=== PATIENT | female | born 1990 | race Caucasian/White ===

== ENCOUNTER 2016-11-28 17:04 | Inpatient (IN) | payer MEDICAID ==
[~2016-11-28] VITALS: Ht 154.9 cm; Wt 76.9 kg
[2016-11-28 17:34] VITALS: Ht 154.9 cm; Wt 76.9 kg
[2016-11-28 17:50] LABS: BASOPHILS % 0.1 % (0.0-2.0); EOSINOPHILS % 0.1 % (0.0-7.0); HEMATOCRIT 31.3 % (37.0-47.0); HEMOGLOBIN 9.7 g/dl (12.0-16.0); LYMPHOCYTES # 1.4 10^3/ul (0.8-2.9); MEAN CORPUSCULAR HEMOGLOBIN 20.4 pg (29.0-33.0); MEAN CORPUSCULAR HGB CONC 30.9 g/dl (32.0-37.0); MEAN PLATELET VOLUME 10.1 fl (7.4-10.4); MONOCYTE # 0.4 10^3/ul (0.3-0.9); NEUTROPHIL # 7.6 10^3/ul (1.6-7.5); NEUTROPHILS % 80.8 % (39.0-77.0); PLATELET COUNT 217 10^3/UL (140-440); RED BLOOD COUNT 4.75 10^6/ul (4.20-5.40); RED CELL DISTRIBUTION WIDTH 17.6 % (11.5-14.5); UNCORRECTED WBC 9.4 10^3/ul (4.8-10.8); WHITE BLOOD COUNT 9.4 10^3/ul (4.8-10.8)
[2016-11-28 17:56] LABS: CONDITION 1; LH ANALYZER COMMENTS 1; SUSPECT 1
[2016-11-28 18:02] LABS: INR 0.93; PROTIME 12.5 Sec (12.2-14.2)
[2016-11-28 18:03] LABS: PARTIAL THROMBOPLASTIN TIME 28.1 Sec (25.0-35.0)
--- NOTE | 2016-11-28 18:30 | RADRPT ---
PROCEDURE: US OB CLINICAL INDICATION: LGA TECHNIQUE: Multiple sonographic images of the pelvis were obtained. The images were reviewed on a PACS workstation. COMPARISON: None FINDINGS: The cervix is not well visualized. There is a single viable intrauterine gestation. Cardiac activity is present with 126 beats per minute. There is a vertex presentation. The placenta is posterior and fundal. There is no evidence for an abruption or placenta previa. There is a normal amount of amniotic fluid with an EMMIE = 11.6 cm. Measurements were made in order to determine age. The results are as follows (cm): BPD =9.33 HC =33.62 AC =34.56 FL =7.42 Estimated gestational age by ultrasound of approximately 38 weeks, 2 days. The estimated date of delivery by ultrasound is 12/10/2016. Reported gestational age by LMP of approximately 37 weeks, 4 days. The reported date of delivery by LMP is 12/15/2016. EFW = 3453 grams (77th percentile) IMPRESSION: Single viable intrauterine gestation of approximately 38 weeks, 2 days . The estimated date of delivery is 12/10/2016 . Dating by ultrasound is within 5 days of dating by LMP. Normal EMMIE. Estimated weight in the 77th percentile. RPTAT: EE Physician Carlos Date Time Electronically viewed and signed by Physician Carlos on 11/28/2016 18:29 /
[2016-11-28] MEDS ORDERED: LACTATED RINGER'S 1,000 ML IV SCH (20:40)
[2016-11-28] MEDS ORDERED: OXYTOCIN 30 UNITS/LR 500 ML IV SCH (21:00)
[2016-11-28] MEDS ORDERED: CEFAZOLIN 2 GM/50 ML (PMX) 50 ML IV SCH (21:00)
[2016-11-28] MEDS ORDERED: CARBOPROST 250 MCG INJ IM PRN (21:00)
[2016-11-28] MEDS ORDERED: METHYLERGONOVINE 0.2 MG INJ IM PRN (21:00)
[2016-11-28] MEDS ORDERED: OXYTOCIN 30 UNITS/LR 500 ML IV PRN (21:00)
[2016-11-28] MEDS ORDERED: MISOPROSTOL 200 MCG TAB PR PRN (21:00)
[2016-11-28] MEDS ORDERED: LACTATED RINGER'S 1,000 ML IV ONE (21:24)
[2016-11-28] MEDS ORDERED: EPHEDrine SULFATE 50 MG/5 ML SYG IV PRN (21:30)
[2016-11-28] MEDS ORDERED: DIPHENHYDRAMINE 50 MG INJ IV PRN ×2 (21:30)
[2016-11-28] MEDS ORDERED: MEPERIDINE 25 MG INJ IV PRN (21:30)
[2016-11-28] MEDS ORDERED: morphine 2 MG INJ IV PRN ×2 (21:30)
[2016-11-28] MEDS ORDERED: CITRIC ACID/NA CITRATE 30 ML CUP PO ONE (21:30)
[2016-11-28] MEDS ORDERED: hydrALAzine 20 MG INJ IV PRN (21:30)
[2016-11-28] MEDS ORDERED: ONDANSETRON 4 MG INJ IV ONE (21:30)
[2016-11-28] MEDS ORDERED: KETOROLAC 30 MG INJ IV ONE (21:30)
[2016-11-28] MEDS ORDERED: ZOLPIDEM 5 MG TAB PO PRN (21:30)
[2016-11-28] MEDS ORDERED: morphine (1 MG/ML) 10ML SYRINGE IV PRN ×3 (21:30)
[2016-11-28] MEDS ORDERED: NALOXONE (0.4 MG/ML) INJ IV PRN (21:30)
[2016-11-28] MEDS ORDERED: ONDANSETRON 4 MG INJ IV PRN ×2 (21:30)
[2016-11-28] MEDS ORDERED: CITRIC ACID/NA CITRATE 30 ML CUP ONE (21:33)
[2016-11-28] MEDS ORDERED: ONDANSETRON 4 MG INJ ONE (21:37)
[2016-11-28] MEDS ORDERED: morphine SULFATE/PF (10 MG/10 ML) INJ ONE (21:52)
[2016-11-28] MEDS ORDERED: MIDAZOLAM 1 MG/ML 2 ML INJ ONE (21:52)
[2016-11-28] MEDS ORDERED: EPHEDrine SULFATE 50 MG/5 ML SYG ONE (21:52)
[2016-11-28] MEDS ORDERED: OXYTOCIN 10 UNIT INJ ONE (21:52)
[2016-11-28] MEDS ORDERED: PHENYLephrine (100 MCG/ML) 5ML SYG ONE (22:19)
--- NOTE | 2016-11-28 23:00 | HP ---
Date/Time of Note Date/Time of Note DATE: 11/28/16 TIME: 22:59 OB - History Hx of Present Free Text/Dictation @37+wks GA labor Previous c/section : 2 Para: 1 Care: Good Care Ultrasounds: Normal mid trimester US Obstetrical Complications: None Medical Complications: None Past Family/Social History * Past Medical, Surgical, Family and Obstetric Histories reviewed from chart. OB Admission Exam Physical Exam Abdomen: WNL Extremities: Normal Cervical Dilatation: 2cm Effacement: 75% Station: -1 Membranes: Intact Heart Rate: 140's Accelerations: Accelerations Present Decelerations: No Decelerations Varibility: Moderate Contractions on Admission: 6-10 Minutes Apart Last 72 hours Lab Results CBC & BMP 11/28/16 17:15 OB Assessment/Plan Reason for admission: section Plan: Section Other plan: @37+wks GA labor Previous c/section ERIC PATIÑO M.D. Nov 28, 2016 23:00
--- NOTE | 2016-11-28 23:01 | OPR ---
Operative Report Planned Procedure Free Text/Dictation @37+wks GA labor Previous c/section Procedure date Nov 28, 2016 Procedure(s) Repeat c/section Performed by: ERIC PATIÑO M.D. Assisting provider: CHIDI REEVES Anesthesiologist: LASHONDA JACKSON M.D. Pre-procedure diagnosis @37+wks GA labor Previous c/section Anesthesia Type: spinal Procedure Description Under satisfactory [] anesthesia, the patient was prepped and draped and placed in a supine position, tilted to the left. Pfannenstiel incision was made, carried through the subcutaneous tissue. Bleeders brought under control with electrocautery. Fascia incised to the length of the incision. Rectus muscles from the fascia, divided midline. Peritoneum exposed, entered through a transverse incision. Exploration of abdomen revealed gravid uterus. Bladder flap was developed. Transverse incision was made in the lower segment of the uterus. Amniotic sac ruptured. [] amniotic fluid noted. [] Nasal oropharyngeal suction was performed. The baby was handed to the team for immediate attention. The placenta was delivered manually intact. Uterine cavity was cleaned with wet sponge and drainage established. Uterus closed in 2 layers using [] in continuous fashion. Peritoneal cavity irrigated with warm saline. Sponge, needle and instrument count reported to be correct. Abdominal peritoneum closed with [] continuously. Rectus muscle approximated with []. Fascia closed with [], and skin closed with dermoband. Estimated blood loss [600 ]mL. Urine bag contained []mL of urine Post-Procedure Findings: Live Baby [], Apgars [] and [], weight [], position [], [] presentation []cord. Complications: None Pt Condition post procedure: stable Disposition: PACU Physician Certification I, the undersigned physician, hereby certify that I have discussed the procedure described in this consent form with this patient (or the patient's legal accounts receivable representative), including: * The risk and benefits of the procedure; * Any adverse reactions that may reasonably be expected to occur; * Any alternative efficacious methods of treatment which may be medically viable ; * The potential problems that may occur during recuperation; * Potential for blood transfusion and associated risks/benefits; and * Any research or economic interest I may have regarding this treatment. I further certify that the patient/legally responsible person was encouraged to ask question and that all questions were answered. ERIC PATIÑO M.D. Nov 28, 2016 23:01
--- NOTE | 2016-11-28 23:07 | TRIAGE ---
OB Triage Datetime Report Generated by CPN: 11/28/2016 23:06 Datetime: 11/28/2016 21:11 Assessment Type: Admission Assessment Vaginal Bleeding: None Maternal Assessment Level of Consciousness: Fully Conscious DTR's/Clonus: DTRs 2+; No Clonus Headache: Denies Blurred Vision: No Respiratory Effort: Unlabored; Regular Rhythm; Equal Expansion Breath Sounds, Left: Clear and Equal Breath Sounds, Right: Clear and Equal Nausea/Vomiting: Denies RUQ Epigastric Pain: Denies Lower Extremities Edema: Bilateral Lower Extremities Degree: 1+ Upper Extremities Edema: None Facial Edema: None Fall Risk Assessment History of Falling: (0) No Secondary Diagnosis: (0) No Ambulatory Aid: (0) Bedrest/Nurse Assist IV Therapy: (20) Yes Gait: (0) Normal/Bedrest/Immobile Mental Status: (0) Oriented to Own Ability Fall Score: 20 Fall Risk Score Definition: No Risk: No action required Labor Evaluation Frequency: 3-4 Duration (sec)2399: 50-70 Quality: Moderate Pattern: Normal: <= 5 Contractions in 10 Minutes Resting Tone [place]: Relaxed Heart Rate FHR Baseline Rate: 135 Variability: Moderate 6-25 bpm Accelerations: 15X15 Decelerations: None Category: Category I Pain Assessment Pain Scale: 6 Pain Presence: Intermittent Pain Type: Contraction Pain Location: Abdomen; Back Pain Goal: 8 Membrane Status: Intact Datetime: 11/28/2016 20:45 Labor Evaluation Frequency: IRREGULAR Monitor Mode: External Duration (sec)2399: 30-60 Quality: Mild Pattern: Normal: <= 5 Contractions in 10 Minutes Resting Tone [place]: Relaxed Heart Rate FHR Baseline Rate: 125 Monitor Mode: External US FHR Baseline Changes: No Baseline Change Variability: Moderate 6-25 bpm Accelerations: 15X15 Decelerations: None Category: Category I Datetime: 11/28/2016 20:42 Vaginal Exam Dilatation (cms): 0.0 Effacement (%): 0 Station: -3 Exam By: Joellen MEJIA RN Vaginal Bleeding: None Cervix, Consistency: Firm Cervix, Position: Posterior Datetime: 11/28/2016 20:06 Membrane Status: Intact Datetime: 11/28/2016 20:00 Labor Evaluation Frequency: IRREGULAR Monitor Mode: External Duration (sec)2399: 60 Quality: Mild Pattern: Normal: <= 5 Contractions in 10 Minutes Resting Tone [place]: Relaxed Heart Rate FHR Baseline Rate: 125 Monitor Mode: Internal Scalp Electrode FHR Baseline Changes: No Baseline Change Variability: Moderate 6-25 bpm Accelerations: 15X15 Decelerations: None Category: Category I Datetime: 11/28/2016 17:43 Stage of : OB Triage Assessment Type: Triage Maternal Assessment Level of Consciousness: Fully Conscious DTR's/Clonus: DTRs 2+; No Clonus Headache: Denies Blurred Vision: No Respiratory Effort: Unlabored; Regular Rhythm; Equal Expansion Breath Sounds, Left: Clear and Equal Breath Sounds, Right: Clear and Equal Nausea/Vomiting: Denies RUQ Epigastric Pain: Denies Lower Extremities Edema: None Degree: None Upper Extremities Edema: None Degree: None Facial Edema: None Temperature Route: Axillary Fall Risk Assessment History of Falling: (0) No Secondary Diagnosis: (0) No Ambulatory Aid: (0) Bedrest/Nurse Assist IV Therapy: (0) No Gait: (0) Normal/Bedrest/Immobile Mental Status: (0) Oriented to Own Ability Fall Score: 0 Fall Risk Score Definition: No Risk: No action required Labor Evaluation Frequency: 2-5 Monitor Mode: External Duration (sec)2399: 50-70 Quality: Mild Pattern: Normal: <= 5 Contractions in 10 Minutes Resting Tone [place]: Relaxed Heart Rate FHR Baseline Rate: 135 Monitor Mode: External US Variability: Marked >25 bpm Accelerations: 15X15 Decelerations: None Category: Category I Pain Assessment Pain Scale: 1 Pain Presence: Intermittent Pain Type: Cramping; Contraction Pain Location: Abdomen Pain Goal: 3 Pain Relief Measures: Comfort Measures Datetime: 11/28/2016 17:21 Time of Arrival: 11/28/2016 20:55 EGA: 37.4 Arrived By: Wheelchair Datetime: 11/28/2016 17:19 Time of Arrival: 11/28/2016 17:06 Arrived By: Ambulatory Arrived From: Office Chief Complaint: contractions previous section Movement: Present Contractions: Irregular Time Contractions Began: 11/28/2016 06:00 Contractions: 2-5 Rupture of Membranes: Denies Vaginal Bleeding: None Vaginal Discharge: Denies Recent Sexual Intercouse: Denies Abdominal Trauma: Not Applicable Patient Complaints: Contractions Time Provider Notified: 11/28/2016 17:30 Provider Notified: HAROON Initial Plan: efm/ u/s,routine lab
[2016-11-29 01:30] VITALS: BP 119/69; PULSE 77; RESP 18
[2016-11-29] MEDS ORDERED: LANOLIN 7 GM TUBE TOP PRN (01:30)
[2016-11-29] MEDS ORDERED: METHYLERGONOVINE 0.2 MG INJ IM PRN (01:30)
[2016-11-29] MEDS ORDERED: CARBOPROST 250 MCG INJ IM PRN (01:30)
[2016-11-29] MEDS ORDERED: MISOPROSTOL 200 MCG TAB PR PRN (01:30)
[2016-11-29] MEDS ORDERED: OXYTOCIN 30 UNITS/LR 500 ML IV PRN (01:30)
[2016-11-29 05:13] VITALS: BP 112/70; PULSE 78; RESP 18
[2016-11-29] MEDS: IBUPROFEN 600 MG TAB PO SCH ×3 (05:17→21:00)
[2016-11-29] MEDS: LACTATED RINGER'S 1,000 ML IV SCH ×3 (05:38→17:52)
[2016-11-29 08:00] VITALS: BP 130/71; PULSE 80; RESP 18
[2016-11-29] MEDS: SENNA/DOCUSATE NA (8.6MG/50MG) TAB PO SCH ×2 (08:29→21:23)
[2016-11-29 08:45] LABS: HEMATOCRIT 23.9 % (37.0-47.0); HEMOGLOBIN 7.5 g/dl (12.0-16.0); LYMPHOCYTES # 0.8 10^3/ul (0.8-2.9); LYMPHOCYTES % 7.1 % (15.0-51.0); MEAN CORPUSCULAR HEMOGLOBIN 20.8 pg (29.0-33.0); MEAN CORPUSCULAR HGB CONC 31.6 g/dl (32.0-37.0); MEAN CORPUSCULAR VOLUME 65.9 fl (82.0-101.0); MEAN PLATELET VOLUME 10.7 fl (7.4-10.4); MONOCYTE # 0.4 10^3/ul (0.3-0.9); MONOCYTES % 4.1 % (0.0-11.0); NEUTROPHIL # 9.8 10^3/ul (1.6-7.5); NEUTROPHILS % 88.8 % (39.0-77.0); PLATELET COUNT 184 10^3/UL (140-440); RED BLOOD COUNT 3.62 10^6/ul (4.20-5.40); UNCORRECTED WBC 11.1 10^3/ul (4.8-10.8); WHITE BLOOD COUNT 11.1 10^3/ul (4.8-10.8)
[2016-11-29 09:02] LABS: CONDITION 1; LH ANALYZER COMMENTS 1
[2016-11-29 12:30] VITALS: BP 106/57; PULSE 77; RESP 18
[2016-11-29] MEDS: KETOROLAC 30 MG INJ IV PRN ×2 (12:34→17:51)
[2016-11-29] MEDS ORDERED: INFLUENZA VIRUS VACCINE 0.5 ML (DISPENSING) IM* ONE (13:30)
[2016-11-29 16:22] VITALS: BP 115/69; PULSE 73; RESP 18
[2016-11-29 20:21] VITALS: BP 108/69; PULSE 67; RESP 18
[2016-11-29] MEDS: OXYCODONE/ACETAMINOPHEN (5/325) TAB PO PRN (22:08)
[2016-11-30] MEDS ORDERED: IBUPROFEN 600 MG TAB PO SCH
[2016-11-30 04:21] VITALS: BP 108/59; PULSE 84; RESP 18
[2016-11-30] MEDS: IBUPROFEN 600 MG TAB PO SCH ×5 (05:39→23:42)
[2016-11-30] MEDS: LACTATED RINGER'S 1,000 ML IV SCH (06:29)
[2016-11-30 08:00] VITALS: BP 101/74; PULSE 88; RESP 17
[2016-11-30] MEDS ORDERED: INFLUENZA VIRUS VACCINE 0.5 ML (DISPENSING) IM* ONE (09:00)
[2016-11-30] MEDS: OXYCODONE/ACETAMINOPHEN (5/325) TAB PO PRN ×2 (09:25→19:06)
[2016-11-30] MEDS: SENNA/DOCUSATE NA (8.6MG/50MG) TAB PO SCH ×2 (09:25→21:09)
--- NOTE | 2016-11-30 10:09 | QN ---
Documentation Comment Late Enty: POD#1 is stable,afebrile No VB +flatus +Voids No sign of Depression VS stable Gen NAD Abd soft NT ND Incision intact Genitalia No Blood at perinium --->discharge Home tomorrow --->ambulation ERIC PATIÑO M.D. Nov 30, 2016 10:09
[2016-11-30 16:00] VITALS: BP 116/75; PULSE 80; RESP 18
[2016-11-30 19:20] VITALS: BP_SYST 118; BP_SYST 122; BP_DIAS 58; BP_DIAS 73; PULSE 78; PULSE 84; RESP 18
[2016-12-01 04:00] VITALS: BP 131/68; PULSE 70; RESP 18
[2016-12-01] MEDS: IBUPROFEN 600 MG TAB PO SCH ×2 (05:28→11:20)
[2016-12-01 08:38] VITALS: BP 125/69; PULSE 76; RESP 18
[2016-12-01] MEDS ORDERED: DIPHTH/TET/ACEL PERTUSS (ADULT) 0.5 ML VIAL IM* ONE (09:00)
[2016-12-01] MEDS: SENNA/DOCUSATE NA (8.6MG/50MG) TAB PO SCH (09:32)
[2016-12-01] MEDS: OXYCODONE/ACETAMINOPHEN (5/325) TAB PO PRN (13:55)
== END 2016-12-01 16:45 | disposition home or self-care (01) | DRG 766 ==
LOC: OBT 17:04 → L-D 17:05 → OBT 20:08 → L-D 21:06 → PP1 11-29 01:43
PROVIDERS: ADMIT Obstetrics & Gynecology; ATTEND Obstetrics & Gynecology
PROC: 10D00Z1 Extraction of Products of Conception, Low, Open Approach (ICD-10-PCS; principal; 2016-11-28 22:00)
DX: O34.211 Maternal care for low transverse scar from previous cesarean delivery (principal); Z37.0 Single live birth; Z3A.37 37 weeks gestation of pregnancy
CPT/HCPCS: 36415; 76815; 85025; 85610; 85730; 86592; 86850; 86900; 86901; 90686; 90715; 94760; 96360; 96361; 99464; G0463; J0690; J1885; J2250; J2274; J2370; J2405; J2590; J7120

== ENCOUNTER 2016-12-10 18:19 | Emergency (ER) | payer MEDICAID ==
[~2016-12-10] VITALS: Ht 154.9 cm; Wt 70.5 kg
[2016-12-10 18:26] VITALS: Ht 154.9 cm; Wt 70.5 kg
--- NOTE | 2016-12-10 19:36 | ERD ---
ER Documentation Chief Complaint Date/Time DATE: 12/10/16 TIME: 19:15 Chief Complaint Vaginal bleed since 1300. STAPLES x1 hour HPI 21 y/o female who presents in ED for vaginal bleeding started around 1300. Patient stated that she saw clots of blood described as "strong red." Change about 8 pads for the past 24 hours. Also complains of headache an hour prior to arrival but denies headache during history taking. Just had a November [address] [facility]. Denies headache at this time, loss of consciousness, dizziness, blurry vision, changes in vision, photophobia, facial pain, ear pain, throat pain, difficulty swallowing, neck pain, shoulder pain, chest pain, cough, hemoptysis, abdominal pain, back pain, loss of appetite, nausea, vomiting, hematochezia, diarrhea, constipation, , the possibility of being , bladder and bowel incontinences, extremity weakness, extremity tenderness, numbness or tingling sensation, difficulty walking, recent travel, recent exposure to illness, recent antibiotic use in the last 3 months, fever, chills. Allergy: NKA PMH: Denies. Denies. Family medical history: A1 LMP: Medications: Denies. Surgery: x2 Social: Not working at this time. Denies smoking, use of alcohol, use of illegal drugs. ROS All systems reviewed and are negative except as per history of present illness. Medications Home Meds No Active Prescriptions or Reported Meds Allergies Allergies: Coded Allergies: No Known Allergy (Unverified , 07/05/12) PMhx/Soc History of Surgery: Yes (C SECTIONx2) Anesthesia Reaction: No Hx Neurological Disorder: No Hx Respiratory Disorders: No Hx Cardiac Disorders: No Hx Psychiatric Problems: No Hx Miscellaneous Medical Probl: No Hx Alcohol Use: No Hx Substance Use: No Hx Tobacco Use: No Smoking Status: Never smoker Physical Exam Vitals Vital Signs Date Time Temp Pulse Resp B/P Pulse Ox O2 Delivery O2 Flow Rate FiO2 12/10/16 18:26 98.2 83 18 137/79 98 Physical Exam CONSTITUTIONAL: Well-appearing; well-nourished; in no apparent distress. HEAD: Normocephalic; atraumatic. EYES: Conjunctiva clear, sclera non-icteric, EOM intact. PERRL Ears: Hearing intact. EACs clear, TMs non-bulging, non-inflamed, translucent & mobile, ossicles normal appearance, No obstructions, no erythema, no discharges Nose: No obstructions. No polyps. No external lesions. Mucosa non-inflamed. No external lesions, septum and turbinates normal. No rhinorrhea. No discharges. Frontal sinus is non-tender to palpation. Maxillary sinus is non-tender to palpation. MOUTH: Moist mucous membranes, no lesion, no obstructions, no vesicles, no thrush, patent airway Throat: Uvula in midline. Right tonsil is +1 with no erythema, no exudate. Left tonsil is +1 with no erythema, no exudate. Tolerating secretions well. Good gag reflex. Patent airway. Neck: Supple, without lesions, bruits, or adenopathy. No mass. Thyroid non- enlarged and non-tender to palpation. CHEST: Symmetrical chest. Respirations even and not labored. No retractions noted. CARDIOVASCULAR: Normal S1, S2. RRR. No murmurs, gallops. RESPIRATORY: Normal chest excursion with respiration; breath sounds clear and equal bilaterally; no wheezes, rhonchi, or rales. Breathing even and unlabored. Speaking in clear, full, and complete sentences w/ ease. ABDOMEN: Normal bowel sounds normal. Soft, round, non-distended, non-guarding, no tenderness, no rebound, no organomegaly, no masses, no pulsating abdominal mass. No hernia. No peritoneal signs. site is intact. There is no signs of dehiscence. No discharges. No bleeding. : No CVA tenderness. BACK: Symmetrical shoulder. Spine is midline without deformity, tenderness. No evidence of trauma or deformity. PELVIS: Stable pelvis. No evidence of trauma or deformity. MUSCULOSKELETAL: Normal gait and station. No misalignment, asymmetry, crepitation, defects, tenderness, masses, effusions, decreased range of motion, instability, atrophy or abnormal strength or tone in the head, neck, spine, ribs , pelvis or extremities. No calf tenderness. NEUROVASCULAR: Distal pulses are present. Pedal pulse are present, equal, and normal. Capillary refills are < 2 seconds. NEUROLOGIC: Alert and oriented x4. Speaks full and clear sentences. Cranial Nerves II-XII normal. Sensation to pain, touch, and proprioception normal. Grossly unremarkable. No neurologic deficits. Romberg test is negative. PSYCHOLOGICAL: The patients mood and manner are appropriate. No hallucinations , delusions. Not SI. Not HI. Has the capacity to decide for self SKIN: Normal for age and ethnicity; warm; dry; good turgor; no apparent lesions or exudates. No rashes, hives, discoloration. Intact. Result Diagram: 12/10/16194612/10/161946 Results 24 hrs Laboratory Tests Test 12/10/16 19:47 Anion Gap 19 Basophils # 0.010^3/ul Basophils % 0.1% Blood Morphology Comment Blood Urea Nitrogen 21mg/dl Calcium Level 9.0mg/dl Carbon Dioxide Level 26mmol/L Chloride Level 104mmol/L Creatinine 0.76mg/dl Eosinophils # 0.110^3/ul Eosinophils % 1.5% Glucose Level 108mg/dl Hematocrit 26.9% Hemoglobin 8.1g/dl Lymphocytes # 2.010^3/ul Lymphocytes % 19.7% Mean Corpuscular Hemoglobin 20.0pg Mean Corpuscular Hemoglobin Concent 30.2g/dl Mean Corpuscular Volume 66.0fl Mean Platelet Volume 8.2fl Monocytes # 0.510^3/ul Monocytes % 4.7% Neutrophils # 7.310^3/ul Neutrophils % 74.0% Nucleated Red Blood Cells # 0.010^3/ul Nucleated Red Blood Cells % 0.0/100WBC Platelet Count 09859^3/UL Potassium Level 4.6mmol/L Red Blood Count 4.0710^6/ul Red Cell Distribution Width 19.5% Sodium Level 144mmol/L Urine Bacteria MODERATE Urine Bilirubin NEGATIVE Urine Clarity CLEAR Urine Color LT. YELLOW Urine Glucose NEGATIVE% Urine Hemoglobin 3+ Urine Ketones NEGATIVE Urine Leukocyte Esterase NEGATIVE Urine Microscopic RBC >200/HPF Urine Microscopic WBC 2-5/HPF Urine Nitrite NEGATIVE Urine Specific [place] 1.025 Urine Squamous Epithelial Cells FEW Urine Total Protein NEGATIVE Urine Urobilinogen 0.2 E.U./dL Urine pH 6.0 White Blood Count 9.910^3/ul Procedures/MDM Examination: Unremarkable examination. Disease process, medical treatment was explained to the patient and family member. They verbalized understanding and agreed with the diagnostic tests, medical treatment, and follow-up care. Radiology: Pelvic ultrasound Impression: Thickened endometrium with heterogenous echotexture but no increase in blood flow on Doppler interrogation is consistent with blood clots rather than a retained products of conception. Mild uterine enlargement consistent with recent gravid state. Sonographically normal left ovary. Nonvisualization of the right ovary. Blood works unremarkable except hemoglobin and hematocrit are 8.1/26.9. This is previously improved since the last time she was here. Urinalysis: Revealed pH is 6.0; urine specific gravity is 1.025; urine ketones negative; urine nitrate is negative; urine bilirubin is negative; urine urobilinogen is 0.2; leukocyte esterase is negative; urine microscopic RBCs greater than 200; urine microscopic WBCs 2-5; urine squamous epithelial cells few; urine bacteria is moderate; urine hemoglobin is 3+. Treatment: None. Re-evaluation: Unremarkable abdominal exam. There is no CVA tenderness. No active bleeding. Consultation: None. Differential diagnosis: Hemorrhage versus vaginal bleeding Case and medical management was discussed with supervising emergency room physician, Dr. Kilo Lopez who agreed with my present treatment and after care. Medical decision makin21 y/o female who presents in ED for vaginal bleeding started around 1300. Patient stated that she saw clots of blood described as "strong red." Change about 8 pads for the past 24 hours. Also complains of headache an hour prior to arrival but denies headache during history taking. Just had a November [address] [facility]. Patient' s complaint, patient's history, my physical findings, diagnostic test results are consistent with final diagnosis of vaginal bleeding post delivery. Medications prescribed are the following: [id number] Tylenol as supportive treatment for pain and fever. Patient and family member are made aware of the side effects and adverse reactions of the medications prescribed. Instructed on when to seek emergent and medical attention in case allergic/anaphylactic reactions or severe side effects and or adverse reactions to medications. Patient and family member verbalized understanding. Patient instructed Instructed to follow-up with his PCP in 24-48 hours. Follow-up with OB in the next 24-48 hours for reevaluation. Instructed to Call 911 for chest pain, shortness of breath. Advised to come back here in ED as soon as possible for severity of symptoms which includes but not limited to: any new symptoms; shortness of breath/difficulty of breathing; cardiovascular changes; severe gastrointestinal symptoms; signs and symptoms of bleeding and or infection; signs of compartment syndrome/neurovascular changes; neurological changes/deficits. Patient and family member verbalized understanding. Upon discharge, patient is alert and oriented x 4, speaks full and clear sentences, denies pain, has no neurological deficits, has no neurovascular deficits, difficulty of breathing. Breathing even and unlabored. Lung sounds are clear to auscultation. Not in distress. Appears comfortable. Ambulatory with steady gait. Appears satisfied with care provided here in ED. Departure Diagnosis: Primary Impression: Vaginal bleeding Additional Instructions: Follow-up with PCP in the next 24-48 hours. Follow-up with OB in the next 24- 48 hours. CESAR LEUNG Dec 10, 2016 19:36
[2016-12-10 20:02] LABS: BASOPHILS % 0.1 % (0.0-2.0); EOSINOPHILS # 0.1 10^3/ul (0.0-0.5); EOSINOPHILS % 1.5 % (0.0-7.0); HEMATOCRIT 26.9 % (37.0-47.0); HEMOGLOBIN 8.1 g/dl (12.0-16.0); LYMPHOCYTES % 19.7 % (15.0-51.0); MEAN CORPUSCULAR HGB CONC 30.2 g/dl (32.0-37.0); MEAN PLATELET VOLUME 8.2 fl (7.4-10.4); MONOCYTE # 0.5 10^3/ul (0.3-0.9); MONOCYTES % 4.7 % (0.0-11.0); NEUTROPHIL # 7.3 10^3/ul (1.6-7.5); PLATELET COUNT 440 10^3/UL (140-440); RED BLOOD COUNT 4.07 10^6/ul (4.20-5.40); RED CELL DISTRIBUTION WIDTH 19.5 % (11.5-14.5); UNCORRECTED WBC 9.9 10^3/ul (4.8-10.8); WHITE BLOOD COUNT 9.9 10^3/ul (4.8-10.8)
[2016-12-10 20:04] LABS: CONDITION 1; LH ANALYZER COMMENTS 1
[2016-12-10 20:07] LABS: POTASSIUM 4.6 mmol/L (3.5-5.1)
[2016-12-10 20:10] LABS: CREATININE 0.76 mg/dl (0.44-1.00)
[2016-12-10 20:22] LABS: ADD UMIC YES; URINE BILIRUBIN (Dip) NEGATIVE (NEGATIVE); URINE BLOOD (Dip) 3+ (NEGATIVE); URINE COLOR LT. YELLOW (YELLOW); URINE GLUCOSE (Dip) NEGATIVE (NEGATIVE); URINE KETONES (Dip) NEGATIVE (NEGATIVE); URINE LEUKOCYTE ESTERASE (Dip) NEGATIVE (NEGATIVE); URINE NITRITE (Dip) NEGATIVE (NEGATIVE); URINE TOTAL PROTEIN (Dip) NEGATIVE (NEGATIVE); URINE UROBILINOGEN (Dip) 0.2 E.U./dL (0.1-1.0)
[2016-12-10 20:59] LABS: BACTERIA,URINE MODERATE; SQUAMOUS EPITHELIAL CELL,UR FEW; URINE RBCS >200 /HPF (0)
--- NOTE | 2016-12-10 22:37 | RADRPT ---
PROCEDURE: US Pelvis. CLINICAL INDICATION: Vaginal bleeding. section on 11/28/2016 TECHNIQUE: Multiple sonographic images of the pelvis were obtained utilizing a transabdominal tech nique. The images were reviewed on a PACS workstation. COMPARISON: None available FINDINGS: Uterus: Slightly enlarged in size consistent with state with normal contour and echogenic ity and no evidence for myometrial masses. Size is estimated at 13.5 x 9 x 5.7 cm. Cervix: No abnormalities of significance are seen. Endometrium: Hypoechoic to heterogeneous and increased in thickness; 22.8 mm. No internal blood niya w on Doppler interrogation Right ovary / adnexa: The ovary is not visualized. There is no evidence of adnexal mass. Left ovary/adnexa: Normal in size estimated at 2.8 x 1.8 x 1.2 cm. No evidence for solid masses, no rmal blood flow on Doppler interrogation. Cul-de-sac: No evidence of free fluid. RPTAT:HJJR IMPRESSION: 1. Thickened endometrium with heterogeneous echotexture but no increased blood flow on Doppler inte rrogation is consistent with blood clots rather than a retained products of conception. 2. Mild uterine enlargement consistent with a recently gravid state. 3. Sonographically normal left ovary. Nonvisualization of the right ovary. Physician Gerry Date Time Electronically viewed and signed by Physician Gerry on 12/10/2016 22:36 /
[2016-12-10 23:04] VITALS: BP 108/57; PULSE 79; RESP 18; TEMP 98.3
== END 2016-12-10 23:04 | disposition home or self-care (01) ==
LOC: FTE 18:19
DX: N93.9 Abnormal uterine and vaginal bleeding, unspecified (principal)
CPT/HCPCS: 36415; 76856; 80048; 81001; 85025; Z7502; 81003